=== PATIENT | female | born 1970 | race Caucasian/White ===

== ENCOUNTER 2022-05-22 08:23 | Outpatient (CLI) | payer OTHER, SELFPAY ==
[2022-05-22 13:37] LABS: Albumin* 4.1 g/dL (3.3-5.0)
[2022-05-22 13:38] LABS: Chloride* 103 mmol/L (96-114); Potassium* 4.8 mmol/L (3.6-5.1); Sodium* 137 mmol/L (135-149)
[2022-05-22 13:40] LABS: Aspartate Amino Transferase* 16 U/L (12-35); Bilirubin Total* 0.5 mg/dL (0.1-1.5); Carbon Dioxide* 30 mmol/L (20-32); Cholesterol* 246 mg/dL (90-199); Creatinine* 0.6 mg/dL (0.5-1.5); Estimated Glomerular Filt Rate 109 ml/min; Total Protein* 6.8 g/dL (6.0-8.3)
[2022-05-22 13:41] LABS: Alanine Aminotransferase* 15 U/L (4-35); Alkaline Phosphatase* 103 U/L (40-150); Blood Urea Nitrogen* 10 mg/dL (7-30); Calcium* 9.4 mg/dL (8.4-10.6); Glucose* 141 mg/dL (60-115); HDL Cholesterol* 45 mg/dL (>=50); LDL Cholesterol Calculated 163 mg/dL (<100); Triglycerides* 189 mg/dL (40-149)
== END 2022-05-22 08:24 | disposition home or self-care (01) ==
PROVIDERS: PCP Family Medicine; Visit Provider Nurse Practitioner Family
DX: Z00.00 Encounter for general adult medical examination without abnormal findings (principal); E88.81 Metabolic syndrome and other insulin resistance; E78.5 Hyperlipidemia, unspecified; K76.0 Fatty (change of) liver, not elsewhere classified; F41.9 Anxiety disorder, unspecified
CPT/HCPCS: 80053; 80061

== ENCOUNTER 2022-12-18 14:09 | Outpatient (CLI) | payer OTHER, SELFPAY ==
[2022-12-18 18:29] LABS: PCR FLU A Negative PCR FLU A (Negative); PCR FLU B Negative PCR FLU B (Negative)
[2022-12-18 18:41] LABS: SARS PCR* Negative SARS-CoV-2 (Negative)
== END 2022-12-18 14:10 | disposition home or self-care (01) ==
LOC: LONREF 14:11
PROVIDERS: PCP Family Medicine; Visit Provider Nurse Practitioner Family
DX: R31.9 Hematuria, unspecified (principal); R52 Pain, unspecified; Z13.89 Encounter for screening for other disorder
CPT/HCPCS: 87086; 87631

== ENCOUNTER 2023-02-03 08:22 | Outpatient (CLI) | payer OTHER, SELFPAY | END 2023-02-03 08:23 | disposition home or self-care (01) | LOC: NFLDREF 02-04 18:16 | PROVIDERS: PCP Family Medicine; Referring Provider Family Medicine; Visit Provider Family Medicine | DX: E78.5 Hyperlipidemia, unspecified (principal); E13.9 Other specified diabetes mellitus without complications | CPT/HCPCS: 80061 ==

== ENCOUNTER 2023-08-19 07:58 | Outpatient (CLI) | payer OTHER, SELFPAY ==
--- OUTSIDE RECORDS SUMMARY | 2023-08-19 08:00 | XMS_ITS | Clinical Summary ---
Author Name Unknown Organization [facility] Address [place], [place] [address] Care Team Providers Care Surveying Technician Name Role Phone Jose Hdez MD Primary Care Provider [phone] Social History Tobacco Use Types Packs/Day Years Used Date Smoking Tobacco: Never Assessed PHQ-2 Answer Date Recorded PHQ-2 Score 0 06/08/2018 Sex and Gender Information Value Date Recorded Sex Assigned at Not on file Gender Identity Not on file Sexual Orientation Not on file Plan of Treatment Health Maintenance Due Date Last Done Comments Tdap 1982 HIV for age 15-65 1986 BMI (ht and wt on same day) for age 18+ 1989 Hepatitis C screening for ag e 18-79 1989 Tetanus booster 1991 Pap test for age 21-65 02/23/1992 Colonoscopy through age 75 02/23/2016 Lipids for age 45-75 02/23/2016 Mammogram for age 45-75 02/23/2016 Depression screening for age 12+ 09/17/2018 09/18/19 18 Zoster (shingles) series for age 50+ (1 of 2) 2021 COVID-19 vaccine series (2022-24 season) 2022 Influenza for age 50-64 12/06/2023 Pneumococcal series for age 6-64 Aged Out No longer eligible based on patient's age to complete this topic Care Teams Surveying Technician Relationship Specialty Start Date End Date Jose Hdez MD PCP - General Family Practice 09/03/17
--- OUTSIDE RECORDS SUMMARY | 2023-08-19 08:00 | XMS_ITS | Clinical Summary ---
Author Name Unknown Organization [place] Address [facility] [place] [address] Care Team Providers Care Pet Crematory Worker Name Role Phone Jassi Hdez MD Primary Care Provider [phone] Olivia Villalta PA-C Unavailable Allergies No known active allergies Medications Medication Sig Dispensed Refills Start Date End Date Status Escitalopram Oxalate (LEXAPRO PO) Take 20 mg by mouth daily Active aspirin (ASA) 81 MG tablet Take 81 mg by mouth daily Active Fluticasone-Salmeterol (ADVAIR DISKUS IN) Active atorvastatin (LIPITOR) 20 MG tablet Take 20 mg by mouth daily Active ADVAIR DISKUS 250-50 MCG/DOSE inhaler INHALE 1 PUFF PO BID FOR COPD 2 04/01/2018 Active IBUPROFEN PO Active Cholecalciferol (VITAMIN D3 PO) Take by mouth daily Active Charcoal Activated (CHARCOAL PO) Active Active Problems No known active problems Resolved Problems Problem Noted Date Diagnosed Date Resolved Date Bloody discharge from left nipple 05/19/2016 05/19/2016 Immunizations Name Administration Dates Next Due Influenza Vaccine >6 months,quad, PF 01/31/2019 Pneumococcal 23 valent 01/31/2019 TD,PF 7+ (Tenivac) 03/25/2018 TDAP (Adacel,Boostrix) 04/04/2008 Td (Adult), Adsorbed 03/25/2018 Family History Medical History Relation Comments Other Cancer Father lung (smoker) Prostate Cancer Father Diabetes Maternal Grandfather Cerebrovascular Disease Maternal Grandmother Hyperlipidemia Mother Thyroid Disease Mother Other Cancer Paternal Grandmother lung (smoke r) Breast Cancer No family hx of Colon Cancer No family hx of Relation Status Comments Father Maternal Grandfather Maternal Grandmother Mother Paternal Grandmother Social History Tobacco Use Types Packs/Day Years Used Date Smoking Tobacco: Every Day Cigarettes Smokeless Tobacco: Never Tobacco Cessation:Ready to Q uit: Yes; Counseling Given: Yes Alcohol Use Standard Drinks/Week Comments Yes 0 (1 standard drink = 0.6 oz pur e alcohol) 2-4 per week PHQ-2 Answer Date Recorded PHQ-2 Score 2 02/17/2019 Adolescent Education Answer Date Record ed Getting School Help Needed Not on file 01/06 Sex and Gender Information Value Date Recorded Sex Assigned at Not on file Gender Identity Not on file Sexual Orientation Not on file Last Filed Vital Signs Vital Sign Reading Time Taken Comments Blood Pressure 116/68 02/17/2019 9:03 AM FAMILY RESOURCE MANAGEMENT PROFESSOR Pulse 88 02/17/2019 9:03 AM FAMILY RESOURCE MANAGEMENT PROFESSOR Temperature - - Respiratory Rate - - Oxygen Saturation 98% 02/17/2019 9:03 AM FAMILY RESOURCE MANAGEMENT PROFESSOR Inhaled Oxygen Concentration - - Weight 71.7 kg (158 lb) 02/17/2019 9:03 AM FAMILY RESOURCE MANAGEMENT PROFESSOR Height 157.5 cm (5' 2) 02/17/2019 9:03 AM FAMILY RESOURCE MANAGEMENT PROFESSOR Body Mass Index 28.9 02/17/2019 9:03 AM FAMILY RESOURCE MANAGEMENT PROFESSOR Plan of Treatment Health Maintenance Due Date Last Done Comments A1C 1971 ADVANCE CARE PLANNING 1971 ANNUAL REVIEW OF HM ORDERS [address] COLONOGRAPHY 1971 DIABETIC FOOT EXAM 1971 EYE EXAM 1971 FIT 1971 FLEX SIG 1971 LIPID 1971 MICROALBUMIN 1971 YEARLY PREVENTIVE VISIT 1971 sDNA (Cologuard) 1971 COLONOSCOPY 1981 COLORECTAL CANCER SCREENING 1981 HIV SCREENING 1986 HEPATITIS C SCREENING 1989 HEPATITIS B IMMUNIZATION (1 of 3 - + 3-dose series) 1990 PAP 02/23/1992 MAMMO SCREENING 05/14/2019 05/14/2017, 04/25/2016, 09/15/2006 Pneumococcal Vaccine: Pediatrics (0 to 5 Years) and At-Risk Patients (6 to 64 Years) (2 of 2 - PCV) 02/01/2020 01/31/2019 LUNG CANCER SCREENING 2021 ZOSTER IMMUNIZATION (1 of 2) 2021 COVID-19 Vaccine (1 - 2022-2 4 season) 2022 PHQ-2 (once per calendar year) 2023 02/17/2019, 02/01/2019 INFLUENZA VACCINE (Season Ended) 2023 01/31/2019 DTAP/TDAP/TD IMMUNIZATION (4 - Td or Tdap) 03/25/2028 03/25/2018, 03/25/2018, 04/04/2008 HPV IMMUNIZATION Aged Out No longer e ligible based on patient's age to complete this topic IPV IMMUNIZATION Aged Out No longer e ligible based on patient's age to complete this topic MENINGITIS IMMUNIZATION Aged Out No l onger eligible based on patient's age to complete this topic RSV MONOCLONAL ANTIBODY Aged Out No l onger eligible based on patient's age to complete this topic Procedures Procedure Name Priority Date/Time Associated Diagnosis Comments MA DIAGNOSTIC LEFT W/ ISAEL Routine 05/14/2017 3:01 PM FAMILY RESOURCE MANAGEMENT PROFESSOR Inconclusive mammogram due to dense breasts from Last 3 Months or Most Recently Relevant to Health Maintenance Results * MA Diagnostic Left w/Isael (05/14/2017 3:01 PM FAMILY RESOURCE MANAGEMENT PROFESSOR) Anatomical Region Laterality Modality Breast Bilateral Mammography Impressions 05/14/2017 4:29 PM FAMILY RESOURCE MANAGEMENT PROFESSOR IMPRESSION: BI-RADS CATEGORY: 1 - ??NEGATIVE RECOMMENDED FOLLOW-UP: Annual Mammography GREGORY CORTEZ MD Narrative 05/14/2017 4:29 PM FAMILY RESOURCE MANAGEMENT PROFESSOR DIAGNOSTIC MAMMOGRAM LEFT DIGITAL w/CAD w/TOMOSYNTHESIS ULTRASOUND LEFT ??BREAST ??05/14/2017. HISTORY: Focal asymmetries in the mid left breast on screening and diagnostic 2-D images from [facility] dated 05/11/2017. Negative ultrasound at that time. Request 3-D mammography. COMPARISON: Mammogram and ultrasound from 05/11/2017. Multiple prior mammograms through 2014. ?? BREAST DENSITY: Scattered fibroglandular densities FINDINGS: ?? 3-D images today now clarify that the asymmetry previously seen on the oblique 2-D mammogram and the asymmetry seen on the 2-D craniocaudad mammogram are not the same asymmetry. The asymmetry in the mid breast posterior to the nipple on the oblique 3-D images is now shown to represent adjacent dense bands of fibroglandular tissue on both mammography and ultrasound. The faint asymmetry in the upper left breast just medial to midline on craniocaudad 3-D images corresponds with a faint asymmetry in the same region on the oblique 3-D views. Ultrasound in the region of concern demonstrates sonographically normal bands of dense breast tissue with some focal areas of prominence that appear to explain the mammographic findings. No suspicious findings. Hiren Blackburn MD IMG MAMMOGRAPHY ORDERABLES from Last 3 Months or Most Recently Relevant to Health Maintenance Care Teams Pet Crematory Worker Relationship Specialty Start Date End Date Jassi Hdez MD PCP - General Family Medicine 12/18/20 Olivia Villalta PA-C [address] [place] [address] Physician Back Panel Padder Endocrinology, Diabetes, and Metabolism 01/06/23
--- OUTSIDE RECORDS SUMMARY | 2023-08-19 08:00 | XMS_ITS | Referral Summary ---
Author Name Unknown Organization [place] Address [facility] [place] [address] Care Team Providers Care Razor Sharpener Name Role Phone Jassi Hdez MD Primary Care Provider [phone] Olivia Villalta PA-C Unavailable Allergies No known [...] TDAP (Adacel,Boostrix) 04/04/2008 Td (Adult), Adsorbed 03/25/2018 Social History Tobacco Use Types Packs/Day Years [...] Comments Blood Pressure 116/68 02/17/2019 9:03 AM CURRICULUM DEVELOPER Pulse 88 02/17/2019 9:03 AM CURRICULUM DEVELOPER Temperature - - Respiratory Rate - - Oxygen Saturation 98% 02/17/2019 9:03 AM CURRICULUM DEVELOPER Inhaled Oxygen Concentration - - Weight 71.7 kg (158 lb) 02/17/2019 9:03 AM CURRICULUM DEVELOPER Height 157.5 cm (5' 2) 02/17/2019 9:03 AM CURRICULUM DEVELOPER Body Mass Index 28.9 02/17/2019 9:03 AM CURRICULUM DEVELOPER Plan of Treatment Not on file Procedures Procedure Name Priority Date/Time Associated Diagnosis Comments MA DIAGNOSTIC LEFT W/ ISAEL Routine 05/14/2017 3:01 PM CURRICULUM DEVELOPER Inconclusive mammogram due to dense breasts from Last 3 Months or Most Recently Relevant to Health Maintenance Results * MA Diagnostic Left w/Isael (05/14/2017 3:01 PM CURRICULUM DEVELOPER) Anatomical Region Laterality Modality Breast Bilateral Mammography Impressions 05/14/2017 4:29 PM CURRICULUM DEVELOPER IMPRESSION: BI-RADS CATEGORY: 1 - ??NEGATIVE RECOMMENDED FOLLOW-UP: Annual Mammography GREGORY CORTEZ MD Narrative 05/14/2017 4:29 PM CURRICULUM DEVELOPER DIAGNOSTIC MAMMOGRAM LEFT DIGITAL w/CAD w/TOMOSYNTHESIS ULTRASOUND LEFT ??BREAST ??05/14/2017. HISTORY: Focal asymmetries in the mid left breast on screening and diagnostic 2-D images from [facility] dated 05/11/2017. Negative ultrasound at that time. [...] Recently Relevant to Health Maintenance Care Teams Razor Sharpener Relationship Specialty Start Date End Date Jassi Hdez MD PCP - General Family Medicine 12/18/20 Olivia Villalta PA-C [address] [place] [address] Physician Salt Washer Harvesting Station Endocrinology, Diabetes, and Metabolism 01/06/23
--- NOTE | 2023-08-19 08:15 | MM_ITS ---
Patient: SMITA ADAME Facility:?[facility] Patient ID:?[id number] Site Patient ID:?[id number] Site :?1970 Study:?XRay-Breast Bilateral 3D W/CAD-08/19/2023 8:29:43 AM Ordering Physician:?Jose Hdez Final Report: BILATERAL SCREENING MAMMOGRAM WITH COMPUTER-AIDED DETECTION AND TOMOSYNTHESIS TECHNIQUE: CC and MLO views were obtained. These mammographic images have been obtained using full-field digital technique. These mammographic images were interpreted with the benefit of computer-aided detection. Breast Tomosynthesis was used in this interpretation. COMPARISON FILM: 08/12/22, 06/25/21, 06/15/20. FINDINGS: There are scattered areas of fibroglandular density. IMPRESSION: There is no radiographic evidence for malignancy. ASSESSMENT: BI-RADS Category 1: Negative RECOMMENDATION: Routine screening mammogram in 1 year. A lay language report of this examination will be provided to the patient. Amador Cohn M.D. Diagnostic Radiologist [email or web address] DSM/sp D& Transcribed: 7:18 p.m. SP/Dictated by: Amador Cohn MD @ 08/19/2023 9:32:00 AM Signed by:?Amador Cohn MD @08/19/2023 7:45:59 PM (Electronic Signature)
== END 2023-08-19 07:59 | disposition home or self-care (01) ==
LOC: MAMMO 07:58
PROVIDERS: PCP Family Medicine; Visit Provider Family Medicine
DX: Z12.31 Encounter for screening mammogram for malignant neoplasm of breast (principal)
CPT/HCPCS: 77063; 77067

== ENCOUNTER 2024-02-10 09:13 | Outpatient (CLI) | payer OTHER, SELFPAY ==
--- OUTSIDE RECORDS SUMMARY | 2024-02-10 09:17 | XMS_ITS | Clinical Summary ---
Author Organization [place] Address [facility] [place] [address] Care Team Providers Care College Scouting Coordinator Name Role Phone Jassi Hdez MD Primary Care Provider [phone] Olivia Villalta PA-C Unavailable Allergies No known active allergies Medications Escitalopram Oxalate (LEXAPRO PO) Take 20 mg by mouth daily Active aspirin (ASA) 81 MG tablet Take 81 mg by mouth daily Active Fluticasone-Salm eterol (ADVAIR DISKUS IN) Active atorvastatin (LIPITOR) 20 [...] School Help Needed Not on file 01/06 Comments Unknown Sex and Gender Information Value Date Recorded Sex Assigned at Not on file Legal Sex Female 4:11 AM HEMATOLOGY NURSE Gender Identity Not on file Sexual Orientation Not on file Last Filed Vital Signs Vital Sign Reading Time Taken Comments Blood Pressure 116/68 02/17/2019 9:03 AM HEMATOLOGY NURSE Pulse 88 02/17/2019 9:03 AM HEMATOLOGY NURSE Temperature - - Respiratory Rate - - Oxygen Saturation 98% 02/17/2019 9:03 AM HEMATOLOGY NURSE Inhaled Oxygen Concentration - - Weight 71.7 kg (158 lb) 02/17/2019 9:03 AM HEMATOLOGY NURSE Height 157.5 cm (5' 2) 02/17/2019 9:03 AM HEMATOLOGY NURSE Body Mass Index 28.9 02/17/2019 9:03 AM HEMATOLOGY NURSE Plan of Treatment Not on file Care Teams College Scouting Coordinator Relationship Specialty Start Date End Date Jassi Hdez MD PCP - General Family Medicine 12/18/20 Olivia Villalta PA-C [address] [place] [id number] Physician Radio Interference Investigator Endocrinology, Diabetes, and Metabolism 01/06/23
--- OUTSIDE RECORDS SUMMARY | 2024-02-10 09:17 | XMS_ITS | Clinical Summary ---
Author Organization [employer] Address [place], [place] [address] Care Team Providers Care Html Developer Name Role Phone Jose Hdez MD Primary Care Provider [phone] Social History Tobacco Use Types Packs/Day Years [...] (1 of 2) 2021 COVID-19 vaccine series (2023- season) 2023 Influenza for age 50-64 12/06/2023 Pneumococcal series for age 6-64 Aged Out No longer eligible based on patient's age to complete this topic Care Teams Html Developer Relationship Specialty Start Date End Date Jose Hdez MD PCP - General Family Practice 09/03/17
--- OUTSIDE RECORDS SUMMARY | 2024-02-10 09:17 | XMS_ITS | Referral Summary ---
Author Organization [place] Address Counts include 234 beds at the [facility] [place] [address] Care Team Providers Care Life Skills Educator Name Role Phone Jassi Hdez MD Primary Care Provider [phone] Olivia Villalta PA-C Unavailable Allergies No known [...] on file Legal Sex Female 4:11 AM TONG CARRIER Gender Identity Not on file Sexual Orientation Not on file Last Filed Vital Signs Vital Sign Reading Time Taken Comments Blood Pressure 116/68 02/17/2019 9:03 AM TONG CARRIER Pulse 88 02/17/2019 9:03 AM TONG CARRIER Temperature - - Respiratory Rate - - Oxygen Saturation 98% 02/17/2019 9:03 AM TONG CARRIER Inhaled Oxygen Concentration - - Weight 71.7 kg (158 lb) 02/17/2019 9:03 AM TONG CARRIER Height 157.5 cm (5' 2) 02/17/2019 9:03 AM TONG CARRIER Body Mass Index 28.9 02/17/2019 9:03 AM TONG CARRIER Plan of Treatment Not on file Care Teams Life Skills Educator Relationship Specialty Start Date End Date Jassi Hdez MD PCP - General Family Medicine 12/18/20 Olivia Villalta PA-C [address] [place] [address] Physician Customer Service Representative Teller Endocrinology, Diabetes, and Metabolism 01/06/23
== END 2024-02-10 09:14 | disposition home or self-care (01) ==
LOC: NFLDREF 09:15
PROVIDERS: PCP Family Medicine; Visit Provider Otolaryngology
DX: R31.9 Hematuria, unspecified (principal); H92.02 Otalgia, left ear
CPT/HCPCS: 87070; 87186

== ENCOUNTER 2024-06-21 11:20 | Outpatient (CLI) | payer BC, SELFPAY | END 2024-06-21 11:21 | disposition home or self-care (01) | LOC: LKVREF 11:20 | PROVIDERS: PCP Family Medicine; Visit Provider Emergency Medicine | DX: R35.0 Frequency of micturition (principal); R10.9 Unspecified abdominal pain | CPT/HCPCS: 87086 ==

== ENCOUNTER 2024-10-17 12:55 | Outpatient (CLI) | payer BC, SELFPAY ==
--- NOTE | 2024-10-17 13:00 | CRLHL7_ITS ---
For Patients: As a result of the Century Cures Act, medical imaging exams and procedure reports are released immediately into your electronic medical record. You may view this report before your referring provider. If you have questions, please contact your health care provider. INDICATION: BILATERAL SCREENING MAMMOGRAM, ASYMPTOMATIC 54 Y/O FEMALE COMPARISON: 08/19/2023, 08/12/2022, 06/25/2021 TECHNIQUE: Digital mammogram in CC and MLO projections including computer-aided detection (CAD) and tomosynthesis. BREAST COMPOSITION: There are scattered areas of fibroglandular density. FINDINGS: No suspicious findings. ASSESSMENT: BI-RADS 2 Benign RECOMMENDATION: Annual screening mammogram. A lay language report of this examination will be provided to the patient. Dictated by: Amador Cohn MD @ 10/18/2024 09:17:00 (Electronically Signed)
== END 2024-10-17 12:56 | disposition home or self-care (01) ==
LOC: MAMMO 12:56
PROVIDERS: PCP Family Medicine; Visit Provider Obstetrics & Gynecology
DX: Z12.31 Encounter for screening mammogram for malignant neoplasm of breast (principal)
CPT/HCPCS: 77063; 77067